=== PATIENT | male | born 1995 | race Caucasian/White ===

== ENCOUNTER 2019-05-24 14:36 | Emergency (ER) | payer MEDICAID ==
[~2019-05-24] VITALS: Ht 172.7 cm; Wt 88.1 kg
[2019-05-24 14:56] VITALS: BP 149/71
--- NOTE | 2019-05-24 15:04 | NUR ---
PT AMBULATED TO THE ROOM W/ A STEADY GAIT.
[2019-05-24] MEDS ORDERED: DEXAMETHASONE 4 MG TABLET ONE (15:13)
[2019-05-24] MEDS ORDERED: DEXAMETHASONE 4 MG TABLET PO STA (15:18)
--- NOTE | 2019-05-24 15:21 | NUR ---
PT MEDICATED PER [facility].
--- NOTE | 2019-05-24 15:33 | NUR ---
Patient given discharge instructions and they have confirmed that they understand the instructions. Patient ambulatory with steady gait.
== END 2019-05-24 15:34 | disposition home or self-care (01) ==
LOC: ED 15:32
DX: J02.0 Streptococcal pharyngitis (principal)
CPT/HCPCS: 99283

== ENCOUNTER 2019-11-15 11:40 | Emergency (ER) | payer SELFPAY ==
[~2019-11-15] VITALS: Ht 172.7 cm; Wt 89.3 kg
[2019-11-15 11:52] VITALS: BP 140/73
[2019-11-15] MEDS ORDERED: ACETAMINOPHEN 325 MG TABLET PO ONE (12:30)
[2019-11-15] MEDS ORDERED: CEFDINIR 300 MG CAPSULE PO ONE (12:30)
[2019-11-15] MEDS ORDERED: DEXAMETHASONE 4 MG/ML, 1ML PO ONE (12:30)
[2019-11-15] MEDS ORDERED: CEFDINIR 300 MG CAPSULE ONE (12:31)
[2019-11-15] MEDS ORDERED: ACETAMINOPHEN 325 MG TABLET ONE (12:32)
[2019-11-15] MEDS ORDERED: DEXAMETHASONE 4 MG/ML, 1ML ONE (12:33)
--- NOTE | 2019-11-15 12:53 | NUR ---
PT C/O SORE THRAT. PT STATE SHE HAS HAD STREP THROAT RECENTLY AND WAS TREATED FOR THAT. PT DENIES ANY COUGH AND DOES NOT KNOW IF HE HAS HAD A FEVER. PT MEDS ADMINISTED PER THE MAY.
--- NOTE | 2019-11-15 12:54 | NUR ---
PT AMBULATED TO THE DISCHARGE DESK. STEADY GAIT NOTED.
== END 2019-11-15 13:00 | disposition home or self-care (01) ==
LOC: ED 12:21
DX: J02.0 Streptococcal pharyngitis (principal)
CPT/HCPCS: 99284; J1100